=== PATIENT | female | born 1940 | race Caucasian/White ===

== ENCOUNTER → 2016-08-05 | Outpatient (CLI) | payer MEDICARE, BC ==
--- NOTE | 2016-08-09 09:06 | MM ---
Reason for exam: screening (asymptomatic). Last mammogram was performed 2 years and 5 months ago. History: Patient has history of breast cancer at age 73 and has history of other cancer at age 63. Family history of breast cancer in mother at age 72 and breast cancer in grandmother at age 70. Malignant US biopsy breast VAD RT of the right breast, March 06, 2014. Physical Findings: A clinical breast exam by your physician is recommended on an annual basis and results should be correlated with mammographic findings. MG 3D Screening Mammo W/Cad Bilateral CC and MLO view(s) were taken. Prior study comparison: March 06, 2014, right breast MG diagnostic mammo RT wo CAD. February 01, 2014, bilateral MG diagnostic mammo w CAD BK. There are scattered fibroglandular densities. Post surgical changes and clips in the right breast. Skin thickening in the right breast. No significant changes when compared with prior studies. ASSESSMENT: Benign, BI-RAD 2 RECOMMENDATION: Routine screening mammogram of both breasts in 1 year.
== END ==
LOC: RADMAMWWP 16:33
PROVIDERS: ATTEND Internal Medicine Geriatric Medicine
DX: Z12.31 Encounter for screening mammogram for malignant neoplasm of breast (principal); Z85.3 Personal history of malignant neoplasm of breast
CPT/HCPCS: 77063; G0202

== ENCOUNTER 2016-09-28 14:57 | Inpatient (IN) | payer MEDICARE, BC ==
--- NOTE | 2016-09-28 15:52 | ED ---
General Adult HPI - General Source: EMS, RN notes reviewed, old records reviewed Mode of arrival: EMS <Michael Tellez - Last Filed: 09/28/16 15:50> <Romeo Tobar - Last Filed: 09/29/16 00:16> - General Chief complaint: Recheck/Abnormal Lab/Rx Stated complaint: Swollen Legs Time Seen by Provider: 09/28/16 15:03 - History of Present Illness Initial comments: This is a 36-year-old female to the ER for evaluation this patient is here for evaluation of diffuse edema and swelling just and disability to ambulate. History of. Blood pressure high cholesterol diabetes. (Michael Tellez) - Related Data Allergies Allergy/AdvReac Type Severity Reaction Status Date / Time iodine Allergy Anaphylaxis Verified 09/28/16 15:48 Penicillins Allergy Anaphylaxis Verified 09/28/16 15:48 latex AdvReac Rash/Hives Verified 09/28/16 15:48 Review of Systems ROS Other: All systems not noted in ROS Statement are negative. <Michael Tellez - Last Filed: 09/28/16 15:50> ROS Other: All systems not noted in ROS Statement are negative. <Romeo Tobar - Last Filed: 09/29/16 00:16> ROS Statement: Those systems with pertinent positive or pertinent negative responses have been documented in the HPI. Past Medical History Past Medical History: Cancer, GERD/Reflux, Hyperlipidemia, Hypertension, Osteoarthritis (OA), Pneumonia Additional Past Medical History / Comment(s): breast cancer which was in the lymph nodes Past Surgical History: Appendectomy, Bladder Surgery, Hysterectomy, Joint Replacement Additional Past Surgical History / Comment(s): eye surgery as a child, cystocele , lap band surgery, 1/3 of stomach removed for precancerous ulcer Past Psychological History: No Psychological Hx Reported Smoking Status: Former smoker Past Alcohol Use History: None Reported Past Drug Use History: None Reported <Michael Tellez - Last Filed: 09/28/16 15:50> Medical Decision Making <Michael Tellez - Last Filed: 09/28/16 15:50> - Lab Data Result diagrams: 09/28/16 16:25 09/28/16 16:25 <Romeo Tobar - Last Filed: 09/29/16 00:16> - Medical Decision Making I receive this patient has a sign out pending the results of the lab studies, and with the understanding that the patient will be admitted based on her inability to ambulate with consideration of probable placement. I discussed case with Dr. Hart who will admit the patient to have further placement. (Romeo Tobar) - Lab Data Lab Results 09/28/16 09/28/16 09/28/16 Range/Units 16:01 16:25 16:25 WBC 8.5 (3.8-10.6) k/uL RBC 3.76 L (3.80-5.40) m/uL Hgb 11.6 (11.4-16.0) gm/dL Hct 36.6 (34.0-46.0) % MCV 97.3 (80.0-100.0) fL MCH 31.0 (25.0-35.0) pg MCHC 31.8 (31.0-37.0) g/dL RDW 13.7 (11.5-15.5) % Plt Count 321 (150-450) k/uL Neutrophils % 68 % Lymphocytes % 19 % Monocytes % 5 % Eosinophils % 6 % Basophils % 1 % Neutrophils # 5.8 (1.3-7.7) k/uL Lymphocytes # 1.6 (1.0-4.8) k/uL Monocytes # 0.5 (0-1.0) k/uL Eosinophils # 0.5 (0-0.7) k/uL Basophils # 0.1 (0-0.2) k/uL PT (9.0-12.0) sec INR (<1.1) APTT (22.0-30.0) sec Sodium (137-145) mmol/L Potassium (3.5-5.1) mmol/L Chloride (98-107) mmol/L Carbon Dioxide (22-30) mmol/L Anion Gap mmol/L BUN (7-17) mg/dL Creatinine (0.52-1.04) mg/dL Est GFR (MDRD) Af Amer (>60 ml/min/1.73 sqM) Est GFR (MDRD) Non-Af (>60 ml/min/1.73 sqM) Glucose (74-99) mg/dL Calcium (8.4-10.2) mg/dL Phosphorus (2.5-4.5) mg/dL Magnesium (1.6-2.3) mg/dL Total Bilirubin (0.2-1.3) mg/dL AST (14-36) U/L ALT (9-52) U/L Alkaline Phosphatase (38-126) U/L Total Creatine Kinase 29 L (30-135) U/L CK-MB (CK-2) <0.2 (0.0-2.4) ng/mL CK-MB (CK-2) Rel Index Troponin I <0.012 (0.000-0.034) ng/mL Total Protein (6.3-8.2) g/dL Albumin (3.5-5.0) g/dL Urine Color Yellow Urine Appearance Clear (Clear) Urine pH 5.5 (5.0-8.0) Ur Specific Midway 1.011 (1.001-1.035) Urine Protein Negative (Negative) Urine Glucose (UA) Negative (Negative) Urine Ketones Negative (Negative) Urine Blood Negative (Negative) Urine Nitrite Negative (Negative) Urine Bilirubin Negative (Negative) Urine Urobilinogen <2.0 (<2.0) mg/dL Ur Leukocyte Esterase Negative (Negative) 09/28/16 09/28/16 Range/Units 16:25 16:25 WBC (3.8-10.6) k/uL RBC (3.80-5.40) m/uL Hgb (11.4-16.0) gm/dL Hct (34.0-46.0) % MCV (80.0-100.0) fL MCH (25.0-35.0) pg MCHC (31.0-37.0) g/dL RDW (11.5-15.5) % Plt Count (150-450) k/uL Neutrophils % % Lymphocytes % % Monocytes % % Eosinophils % % Basophils % % Neutrophils # (1.3-7.7) k/uL Lymphocytes # (1.0-4.8) k/uL Monocytes # (0-1.0) k/uL Eosinophils # (0-0.7) k/uL Basophils # (0-0.2) k/uL PT 10.8 (9.0-12.0) sec INR 1.1 (<1.1) APTT 22.7 (22.0-30.0) sec Sodium 136 L (137-145) mmol/L Potassium 4.4 (3.5-5.1) mmol/L Chloride 101 (98-107) mmol/L Carbon Dioxide 27 (22-30) mmol/L Anion Gap 8 mmol/L BUN 18 H (7-17) mg/dL Creatinine 0.77 (0.52-1.04) mg/dL Est GFR (MDRD) Af Amer >60 (>60 ml/min/1.73 sqM) Est GFR (MDRD) Non-Af >60 (>60 ml/min/1.73 sqM) Glucose 96 (74-99) mg/dL Calcium 9.5 (8.4-10.2) mg/dL Phosphorus 3.4 (2.5-4.5) mg/dL Magnesium 1.7 (1.6-2.3) mg/dL Total Bilirubin 0.7 (0.2-1.3) mg/dL AST 21 (14-36) U/L ALT 14 (9-52) U/L Alkaline Phosphatase 80 (38-126) U/L Total Creatine Kinase (30-135) U/L CK-MB (CK-2) (0.0-2.4) ng/mL CK-MB (CK-2) Rel Index Troponin I (0.000-0.034) ng/mL Total Protein 6.9 (6.3-8.2) g/dL Albumin 3.8 (3.5-5.0) g/dL Urine Color Urine Appearance (Clear) Urine pH (5.0-8.0) Ur Specific Midway (1.001-1.035) Urine Protein (Negative) Urine Glucose (UA) (Negative) Urine Ketones (Negative) Urine Blood (Negative) Urine Nitrite (Negative) Urine Bilirubin (Negative) Urine Urobilinogen (<2.0) mg/dL Ur Leukocyte Esterase (Negative) Disposition <Michael Tellez - Last Filed: 09/28/16 15:50> <Romeo Tobar - Last Filed: 09/29/16 00:16> Clinical Impression: Inability to ambulate due to multiple joints Disposition: ADMITTED IP TO THIS [facility] Condition: Fair
[2016-09-28 16:12] LABS: Appearance,Urine Clear (Clear); Bilirubin,Urine Negative (Negative); Glucose,Urine (UA) Negative (Negative); Ketones,Urine Negative (Negative); Leukocyte Esterase,Urine Negative (Negative); Nitrite,Urine Negative (Negative); PH, Urine 5.5 (5.0-8.0); Protein,Urine Negative (Negative); Specific Gravity,Urine 1.011 (1.001-1.035); UA Billing (MACRO vs. MICRO) CHEM; Urobilinogen,Urine <2.0 mg/dL (<2.0)
[2016-09-28 16:37] LABS: Basophils # (A) 0.1 k/uL (0-0.2); Basophils % (A) 1 %; CH 30.9; CHCM 31.9; Eosinophils # (A) 0.5 k/uL (0-0.7); Eosinophils % (A) 6 %; HCT 36.6 % (34.0-46.0); HDW 2.23; HGB 11.6 gm/dL (11.4-16.0); Luc # (Auto) 0.12; Luc % (Auto) 2; Lymphocytes # (A) 1.6 k/uL (1.0-4.8); Lymphocytes % (A) 19 %; MCHC 31.8 g/dL (31.0-37.0); MCV 97.3 fL (80.0-100.0); Mean Platelet Volume 6.6; Monocytes # (A) 0.5 k/uL (0-1.0); Monocytes % (A) 5 %; Neutrophils # (A) 5.8 k/uL (1.3-7.7); Neutrophils % (A) 68 %; RBC 3.76 m/uL (3.80-5.40); RDW 13.7 % (11.5-15.5); WBC 8.5 k/uL (3.8-10.6); WBC (Perox) 9.06
[2016-09-28 16:46] LABS: ALT 14 U/L (9-52); AST 21 U/L (14-36); Alkaline Phosphatase 80 U/L (38-126); Anion Gap 8 mmol/L; Blood Urea Nitrogen 18 mg/dL (7-17); Calcium 9.5 mg/dL (8.4-10.2); Carbon Dioxide 27 mmol/L (22-30); Chloride 101 mmol/L (98-107); Glucose 96 mg/dL (74-99); Magnesium 1.7 mg/dL (1.6-2.3); Non-African American GFR(MDRD) >60 (>60 ml/min/1.73 sqM); Phosphorous 3.4 mg/dL (2.5-4.5); Potassium 4.4 mmol/L (3.5-5.1); Sodium 136 mmol/L (137-145); Total Bilirubin 0.7 mg/dL (0.2-1.3); Total Protein 6.9 g/dL (6.3-8.2)
[2016-09-28 16:49] LABS: INR 1.1 (<1.1); Partial Thromboplastin Time 22.7 sec (22.0-30.0); Prothrombin Time 10.8 sec (9.0-12.0)
[2016-09-28 16:55] LABS: Creatine Kinase 29 U/L (30-135)
[2016-09-28 17:08] LABS: Creatine Kinase MB <0.2 ng/mL (0.0-2.4); Troponin I <0.012 ng/mL (0.000-0.034)
[2016-09-28] MEDS ORDERED: ACETAMINOPHEN TAB 325 MG TAB PO STA (18:13)
--- NOTE | 2016-09-28 18:28 | US ---
EXAMINATION TYPE: US venous doppler duplex LE BI DATE OF EXAM: 09/28/2016 6:02 PM COMPARISON: NONE CLINICAL HISTORY: Pain. Bilateral leg swelling. Extremely difficult/limited exam due to patient body habitus and bilateral swelling SIDE PERFORMED: Bilateral TECHNIQUE: The lower extremity deep venous system is examined utilizing real time linear array sonog shazia with graded compression, doppler sonography and color-flow sonography. VESSELS IMAGED: External Iliac Vein (EIV) Common Femoral Vein Deep Femoral Vein Greater Saphenous Vein * Femoral Vein Popliteal Vein Small Saphenous Vein * Proximal Calf Veins (* superficial vessels) Right Leg: Negative for DVT as visualized Left Leg: Negative for DVT as visualized Unable to turn probe longitudinally for color pictures due to patient body habitus, however color and flow was achieved on transverse imaging. IMPRESSION: No evidence for DVT.
[2016-09-29] MEDS ORDERED: NALOXONE 0.4 MG/ML 1 ML VIAL IV PRN (00:13)
[2016-09-29] MEDS ORDERED: ONDANSETRON 4 MG/2 ML VIAL IVP PRN (00:13)
[2016-09-29] MEDS ORDERED: CLINDAMYCIN 300 MG in DEXTROSE 5% IN WATER 50 ML IVPB SCH ×2 (09:00)
[2016-09-29] MEDS: SYMBICORT 80-4.5 MCG INHALER INHALATION SCH ×2 (09:10→21:29)
[2016-09-29] MEDS: FLUoxetine HCL 20 MG CAP PO SCH (09:12)
[2016-09-29] MEDS: ATORVASTATIN 80 MG TAB PO SCH (09:12)
[2016-09-29] MEDS: ASPIRIN 81 MG CHEW PO SCH (09:12)
[2016-09-29] MEDS: HEPARIN SODIUM,PORCINE 5,000 UNIT/ML 1 ML VIAL SQ SCH ×2 (09:12→20:52)
[2016-09-29] MEDS: FUROSEMIDE 40 MG TAB PO SCH (09:13)
[2016-09-29] MEDS: LOSARTAN 50 MG TAB PO SCH (09:13)
[2016-09-29] MEDS: SPIRONOLACTONE 25 MG TAB PO SCH (09:13)
[2016-09-29] MEDS: ACETAMINOPHEN TAB 325 MG TAB PO PRN (09:15)
--- NOTE | 2016-09-29 11:23 | HP ---
DATE OF ADMISSION: DATE OF SERVICE: 09/28/2016 CHIEF COMPLAINT: A 76-year-old white female with generalized weakness and lymphedema and cellulitis of extremities, admitted from the emergency room when seen in the emergency room an H&P was performed on 09/28/2016. SUBJECTIVE: A 76-year-old white female with history of progressive lymphedema and redness and swelling and open wounds to the lower legs over the past 2 to 3 years with worsening over the last 3 to 6 months. She said she has gained 30 pounds in last year. She is unable to get out of bed or once in a while, she states she can ambulate to the bathroom but minimally can ambulate and she progressively due to cellulitis and wounds building up her legs and increase fluid, she is unable to get out of bed and she is worried about infection in her legs at which time she came to the hospital. She has IODINE, PENICILLIN, and LATEX allergies. REVIEW OF SYSTEMS: A 14-point review of systems negative except for as mentioned in the HPI. PAST MEDICAL HISTORY: She has a history of GERD, dyslipidemia, hypertension, osteoarthritis, breast cancer, seen by Dr. Ibeth Whitfield, which is in remission with lymphedema, history of pneumonia. She has had bladder surgery, hysterectomy, joint replacement, appendectomy, eye surgery as a child, cystocele, lap band surgery. SOCIAL HISTORY: Former smoker. No alcohol. No illicit drugs. She lives in a mobile home by herself. She has home care coming in. Sodium was 136, potassium 4.4, BUN 18, creatinine 0.77, white count 8.5, hemoglobin 11.6. UA is negative. GFR is greater than 60, liver enzymes are normal. CARDIOVASCULAR: S1, S2. Lungs show scattered wheezes. PSYCHIATRIC: Fair mood and affect. NEUROLOGIC: Alert and oriented x3. HEMATOLOGIC: Shows lymphedema-type changes in the lower extremities with large amounts of edema all the way up to the mid abdomen area. She has cellulitis and redness and warmth to the lower extremities from the toes up to the knees and bilateral legs. GI: Obesity, increased abdominal girth. MUSCULOSKELETAL: Range of motion is limited in her legs maybe 3/5 strength, 4 to 5/5 strength in her upper extremities. ASSESSMENT: 1. Acute cellulitis extremities. 2. Acute lymphedema. 3. Inability to ambulate, gait dysfunction. 4. Generalized debility. She will need placement at a rehab center. IV antibiotics will be started for leg cellulitis. Dr. Whitten will be consulted for the leg cellulitis as well as PT, OT.
[2016-09-29] MEDS: IBUPROFEN 400 MG TAB PO PRN (12:42)
[2016-09-29 13:16] LABS: Hemoglobin A1C 5.3 % (4.2-6.1)
[2016-09-29] MEDS: ceFAZolin 1,000 MG in DEXTROSE/WATER 1 50ML.BAG IVPB SCH ×2 (15:20→23:21)
[2016-09-29] MEDS: NYSTATIN 100,000 UNIT/GM POWD 15 GM TOPICAL SCH (20:52)
[2016-09-30] MEDS: SYMBICORT 80-4.5 MCG INHALER INHALATION SCH ×2 (07:36→20:48)
--- NOTE | 2016-09-30 08:10 | CONS ---
DATE OF CONSULTATION: 09/29/2016 Reason for consultation is lower extremity cellulitis and groin area cutaneous candidiasis. HISTORY OF PRESENT ILLNESS: The patient is a 76-year-old female who came to the ER at [facility] 09/28/2016 with significant swelling of her lower extremity. Patient said that she was supposed to be on Lasix as an outpatient, not sure when or why it was stopped with significant swelling of the lower extremity and some erythema of the right leg. The patient also noticed there is some fluid collection behind the both knee area with worsening swelling and redness. She was unable to walk around with significant debility. The patient also has significant excoriation of the bilateral groin area. With these symptoms, the patient presented to the ER. The patient had been evaluated by the ER physician. She had lower extremity Doppler that was negative for DVT. She has been admitted to the hospital with fluid overload and question of cellulitis in view of the erythema. Patient was started on clindamycin because of her PENICILLIN allergy. ID was consulted for further recommendation regarding antibiotic therapy. Patient denies any high-grade fever; however, did have some chill. Patient denies significant chest pain, has some shortness of breath. No abdominal pain. No nausea, vomiting or any diarrhea. REVIEW OF SYSTEMS: CONSTITUTIONAL: Positive for weakness and chills. No high-grade fever. EYES: No complaint. ENT: No complaint. RESPIRATORY: As per HPI. CARDIOVASCULAR: As per HPI. GENITOURINARY: No complaint. GASTROINTESTINAL: No complaint. MUSCULOSKELETAL: No complaint. INTEGUMENTARY: As per HPI. PSYCHOLOGIC: No complaint. ENDOCRINE: No complaint. NEUROLOGIC: No complaint. PAST MEDICAL HISTORY: Hypertension, hyperlipidemia, osteoarthritis, pneumonia, gastroesophageal reflux disease, breast cancer. PAST SURGICAL HISTORY: Appendectomy, bladder surgery, hysterectomy, lap band surgery. SOCIAL HISTORY: Remote history of smoking. No drinking or drug use. 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 FAMILY HISTORY: No pertinent findings were noticed. Allergic to PENICILLIN with a past history of anaphylaxis, LATEX and IODINE with a rash. Medications include the patient is currently on Tylenol, aspirin, Lipitor, Symbicort, clindamycin, Prozac, Lasix, Motrin, Cozaar, Narcan, Zofran, Aldactone. On examination, blood pressure is 130/45 with a pulse of 67, temperature 98.7, she is 97% on room air. General description is an elderly female, lying in bed in no distress. No tachypnea or accessory muscle for respiration use. HEENT examination shows no pallor or scleral icterus. Oral mucous membranes dry. NECK: Trachea central. No thyromegaly. LUNGS: Unlabored breathing. Clear to auscultation anteriorly. HEART: S1, S2, regular rate and rhythm. ABDOMEN: Soft. No tenderness. Bilateral edema of the feet with minimal tenderness to the left leg. No evidence of any skin breakdown or any drainage. Examination of the bilateral groin area with significant excoriation and cutaneous candidiasis. Examination of the sacral area: No skin breakdown was noticed or any open wounds. Neurologically, patient is awake, alert, oriented x3. Mood and affect normal. LABS: Hemoglobin is 11.6 with a white count of 8.5, BUN of 18, creatinine 0.77. electrolytes has been normal, UA has been negative. DIAGNOSTIC IMPRESSION AND PLAN: 1. Patient admitted to the hospital with significant swelling of the legs with excoriation of the bilateral groin area with some erythema to the left leg with redness. Possible cellulitis in a patient with diffuse swelling and redness likely streptococcal disease. Clinical suspicion remained to be low for a methicillin-resistant Staphylococcus aureus infection. 2. Bilateral groin area cutenous candidiasis. 3. PENICILLIN allergy but no history of anaphylaxis. PLAN: 1. Discontinue clindamycin to decrease risk for Clostridium difficile colitis. 2. Patient will be given cefazolin 1 gm q.8 using cephalosporin in Patient with a history of PENICILLIN with itching will be safe. 3. Mycostatin powder to the bilateral groin area. 4. Will follow with the clinical condition and a culture to further adjust medication if needed. Thank you for this consultation. Will follow this patient along with you. INÉS
[2016-09-30] MEDS: ACETAMINOPHEN TAB 325 MG TAB PO PRN (08:35)
[2016-09-30] MEDS: ASPIRIN 81 MG CHEW PO SCH (09:26)
[2016-09-30] MEDS: ATORVASTATIN 80 MG TAB PO SCH (09:26)
[2016-09-30] MEDS: ceFAZolin 1,000 MG in DEXTROSE/WATER 1 50ML.BAG IVPB SCH ×2 (09:26→17:08)
[2016-09-30] MEDS: FLUoxetine HCL 20 MG CAP PO SCH (09:27)
[2016-09-30] MEDS: HEPARIN SODIUM,PORCINE 5,000 UNIT/ML 1 ML VIAL SQ SCH ×2 (09:27→20:50)
[2016-09-30] MEDS: SPIRONOLACTONE 25 MG TAB PO SCH (09:27)
[2016-09-30] MEDS: LOSARTAN 50 MG TAB PO SCH (09:27)
[2016-09-30] MEDS: FUROSEMIDE 40 MG TAB PO SCH (09:27)
[2016-09-30] MEDS: NYSTATIN 100,000 UNIT/GM POWD 15 GM TOPICAL SCH ×2 (09:29→21:08)
[2016-10-01] MEDS: ceFAZolin 1,000 MG in DEXTROSE/WATER 1 50ML.BAG IVPB SCH ×2 (00:31→09:53)
[2016-10-01] MEDS: SYMBICORT 80-4.5 MCG INHALER INHALATION SCH ×2 (08:07→19:43)
--- NOTE | 2016-10-01 09:17 | PN ---
DATE OF SERVICE: 09/30/2016 REASON FOR FOLLOWUP: Lower extremity cellulitis and groin area cutaneous candidiasis. INTERVAL HISTORY: The patient is afebrile. She is breathing comfortably. Swelling to leg slightly decreased. No significant redness. Denies having any chest pain or shortness cough. No cough or diarrhea. On examination, blood pressure 110/63, pulse 66, temperature 98.2. She is 97% on 2 L nasal cannula. GENERAL DESCRIPTION: An elderly female, lying in bed in no distress. RESPIRATORY SYSTEM: Unlabored breathing. Clear to auscultation anteriorly. HEART: S1, S2 regular rate and rhythm. EXTREMITIES: Legs, swelling persists but redness has resolved. LABS: No new lab have been obtained today. Urine culture is negative. DIAGNOSTIC IMPRESSION AND PLAN: 1. Patient has significant swelling of the legs with a component of possible cellulitis. She has responded to cefazolin and has had no further problems. Finish short course of oral Keflex. 2. Patient with bilateral groin area cutaneous candidiasis, nystatin powder for about a week to 10 days. MTDD
[2016-10-01] MEDS: ASPIRIN 81 MG CHEW PO SCH (09:54)
[2016-10-01] MEDS: ATORVASTATIN 80 MG TAB PO SCH (09:54)
[2016-10-01] MEDS: FLUoxetine HCL 20 MG CAP PO SCH (09:54)
[2016-10-01] MEDS: NYSTATIN 100,000 UNIT/GM POWD 15 GM TOPICAL SCH ×2 (09:55→22:17)
[2016-10-01] MEDS: HEPARIN SODIUM,PORCINE 5,000 UNIT/ML 1 ML VIAL SQ SCH ×2 (09:55→22:16)
[2016-10-01] MEDS: FUROSEMIDE 40 MG TAB PO SCH (09:55)
[2016-10-01] MEDS: LOSARTAN 50 MG TAB PO SCH (09:55)
[2016-10-01] MEDS: SPIRONOLACTONE 25 MG TAB PO SCH (09:56)
--- NOTE | 2016-10-01 10:58 | PN ---
SUBJECTIVE: 76-year-old white female admitted with lymphedema, cellulitis of extremities. Remains on IV Cefazolin. Leg elevation. The patient is improving with IV Lasix. She is now on subcu heparin. CARDIOVASCULAR: S1, S2. LUNGS: Clear. GI: Soft. HEMATOLOGIC: Negative Homans. Lymphedema ( ) lower extremities. Dr. Stevens ordered Kefzol through the IV. ( ) maceration. Microstat powder to the groin. Possible discharge home tomorrow. PT, OT.
[2016-10-01] MEDS: ACETAMINOPHEN TAB 325 MG TAB PO PRN (11:12)
[2016-10-01] MEDS: CEPHALEXIN 500 MG CAP PO SCH ×2 (16:48→22:16)
--- NOTE | 2016-10-01 17:10 | PN ---
DATE OF SERVICE: 10/01/2016 Reason for follow up is bilateral lower extremity cellulitis and inguinal area cutaneous Candidiasis. INTERVAL HISTORY: The patient is afebrile. He is breathing comfortably. The leg swelling has improved. Redness has resolved. Denies any chest, no cough, no abdominal pain and no diarrhea. On examination, blood pressure 115/64, pulse of 98, temperature 97.5. She is 98% on 2 liters nasal cannula. General description is an elderly female up in the chair in no distress. RESPIRATORY SYSTEM: Unlabored breathing. Clear to auscultation anteriorly. HEART: S1, S2. Regular rate and rhythm. ABDOMEN: Soft. No tenderness. Leg swelling has decreased. No redness. LABS: [id number], white count 8.5. Urine has been negative. DIAGNOSTIC IMPRESSION AND PLAN: 1. Patient with bilateral lower extremity significant swelling and minimal redness, concern for possible cellulitis, has shown improvement. Plan to switch her over to p.o. Keflex for another 4 to 5 days. 2. Groin area cutaneous Candidiasis. Just continue Nystatin powder.
[2016-10-01] MEDS: IBUPROFEN 400 MG TAB PO PRN (17:42)
[2016-10-02] MEDS: SYMBICORT 80-4.5 MCG INHALER INHALATION SCH ×2 (07:42→19:27)
[2016-10-02] MEDS: ACETAMINOPHEN TAB 325 MG TAB PO PRN ×2 (09:05→21:29)
[2016-10-02] MEDS: ATORVASTATIN 80 MG TAB PO SCH (09:06)
[2016-10-02] MEDS: HEPARIN SODIUM,PORCINE 5,000 UNIT/ML 1 ML VIAL SQ SCH ×2 (09:06→21:30)
[2016-10-02] MEDS: CEPHALEXIN 500 MG CAP PO SCH ×3 (09:06→21:30)
[2016-10-02] MEDS: FUROSEMIDE 40 MG TAB PO SCH (09:06)
[2016-10-02] MEDS: SPIRONOLACTONE 25 MG TAB PO SCH (09:06)
[2016-10-02] MEDS: LOSARTAN 50 MG TAB PO SCH (09:06)
[2016-10-02] MEDS: ASPIRIN 81 MG CHEW PO SCH (09:06)
[2016-10-02] MEDS: FLUoxetine HCL 20 MG CAP PO SCH (09:06)
[2016-10-02] MEDS: NYSTATIN 100,000 UNIT/GM POWD 15 GM TOPICAL SCH ×2 (09:07→21:30)
--- NOTE | 2016-10-02 09:56 | PN ---
DATE OF SERVICE: 10/01/2016 SUBJECTIVE: 76-year-old white female with inability to ambulate, lymphedema and protein calorie malnutrition, generalized weakness and lethargy. The patient is slowly improving with IV Lasix. Ambulation is poor. She is unable to get out of bed. Discharge planning has been consulted. CARDIOVASCULAR: S1 and S2. LUNGS: Transmitted upper airway sounds. HEMATOLOGIC: Negative Homans. PSYCHIATRIC: Fair mood and affect. PLAN: Continue current treatment with IV Lasix. PT, OT. Possible discharge home in the next 24 to 48 hours.
--- NOTE | 2016-10-02 17:30 | PN ---
SUBJECTIVE: A 76-year-old white female with decreased redness and swelling, responding with IV Lasix. She is agreeable to go to a group home for a couple weeks over at [facility]. Heart rate S1, S2. ABDOMEN: Soft. Legs with decreased redness. Hemoglobin is 11.6, white count 8.5. Urine is negative. ASSESSMENT: 1. Bilateral cellulitis of the legs. 2. Lymphedema, all improving. 3. Candidiasis. 4. Generalized debility. 5. Inability to ambulate. half-way placement on Tuesday. Continue with PT, OT, IV Lasix.
[2016-10-03] MEDS: IBUPROFEN 400 MG TAB PO PRN (00:06)
[2016-10-03] MEDS: SYMBICORT 80-4.5 MCG INHALER INHALATION SCH ×2 (07:53→20:21)
[2016-10-03] MEDS: ACETAMINOPHEN TAB 325 MG TAB PO PRN ×2 (09:03→16:59)
[2016-10-03] MEDS: DOCUSATE 100 MG CAP PO SCH (09:03)
[2016-10-03] MEDS: ATORVASTATIN 80 MG TAB PO SCH (09:04)
[2016-10-03] MEDS: FUROSEMIDE 40 MG TAB PO SCH (09:04)
[2016-10-03] MEDS: CEPHALEXIN 500 MG CAP PO SCH ×3 (09:04→22:16)
[2016-10-03] MEDS: LOSARTAN 50 MG TAB PO SCH (09:04)
[2016-10-03] MEDS: FLUoxetine HCL 20 MG CAP PO SCH (09:04)
[2016-10-03] MEDS: ASPIRIN 81 MG CHEW PO SCH (09:04)
[2016-10-03] MEDS: SPIRONOLACTONE 25 MG TAB PO SCH (09:04)
[2016-10-03] MEDS: HEPARIN SODIUM,PORCINE 5,000 UNIT/ML 1 ML VIAL SQ SCH ×2 (09:04→22:15)
[2016-10-03] MEDS: NYSTATIN 100,000 UNIT/GM POWD 15 GM TOPICAL SCH ×2 (09:06→22:16)
[2016-10-03] MEDS: SUCRALFATE 1 GM TAB PO SCH ×2 (12:13→16:57)
[2016-10-03] MEDS: MELATONIN 5 MG TABLET PO SCH (22:15)
[2016-10-04] MEDS: ACETAMINOPHEN TAB 325 MG TAB PO PRN (02:43)
--- NOTE | 2016-10-04 07:14 | PN ---
SUBJECTIVE: This 76-year-old white female with lymphedema-type changes, cellulitis of the lower extremities, remains on IV Kefzol. She is having no chest pain or shortness of breath. No lightheadedness, dizziness or syncope. Her leg swelling is decreasing. Her ambulation is poor. She is unable to get out of bed by herself. She is being evaluated for long-term, family requested her to go back to [facility] for one week. LUNGS: Clear. GI: Soft. HEMATOLOGIC: Negative Homans. Continue with current treatments.
[2016-10-04] MEDS: SYMBICORT 80-4.5 MCG INHALER INHALATION SCH ×2 (07:58→20:27)
[2016-10-04] MEDS: ATORVASTATIN 80 MG TAB PO SCH (08:53)
[2016-10-04] MEDS: CEPHALEXIN 500 MG CAP PO SCH ×3 (08:53→22:00)
[2016-10-04] MEDS: SUCRALFATE 1 GM TAB PO SCH ×3 (08:53→16:44)
[2016-10-04] MEDS: ASPIRIN 81 MG CHEW PO SCH (08:53)
[2016-10-04] MEDS: HEPARIN SODIUM,PORCINE 5,000 UNIT/ML 1 ML VIAL SQ SCH ×2 (08:54→20:07)
[2016-10-04] MEDS: LOSARTAN 50 MG TAB PO SCH (08:54)
[2016-10-04] MEDS: DOCUSATE 100 MG CAP PO SCH (08:54)
[2016-10-04] MEDS: FLUoxetine HCL 20 MG CAP PO SCH (08:54)
[2016-10-04] MEDS: FUROSEMIDE 40 MG TAB PO SCH (08:54)
[2016-10-04] MEDS: NYSTATIN 100,000 UNIT/GM POWD 15 GM TOPICAL SCH ×2 (08:55→20:07)
[2016-10-04] MEDS: SPIRONOLACTONE 25 MG TAB PO SCH (08:55)
[2016-10-04] MEDS: IBUPROFEN 400 MG TAB PO PRN (08:59)
--- NOTE | 2016-10-04 11:48 | PN ---
DATE OF SERVICE: 10/04/2016 Reason for followup is: 1. Bilateral lower extremity cellulitis, improved. 2. Groin cutaneous candidiasis. INTERVAL HISTORY: The patient is afebrile. She is currently breathing comfortably. Denies significant chest pain, no cough. No pain in the groin area. The leg swelling has improved with no redness. On examination, blood pressure 140/53 with a pulse of 70, temperature 97.9, she is 94% on room air. General description is an elderly female, lying in bed in no distress. RESPIRATORY SYSTEM: Unlabored breathing. Clear to auscultation anteriorly. HEART: S1, S2. Regular rate and rhythm. ABDOMEN: Soft, no tenderness. Leg swelling has much improved. No redness. LABS: No new labs have been obtained today. Urine is negative. DIAGNOSTIC IMPRESSION AND PLAN: 1. Patient with bilateral extremity swelling with question of minimal cellulitis, adequately treated per oral Keflex. She will continue for another 4 to 5 days. 2. Groin area cutaneous skin disease, the patient will continue with nystatin powder for about a week. Continue supportive care.
--- NOTE | 2016-10-04 13:36 | XR ---
EXAMINATION TYPE: XR chest 1V DATE OF EXAM: 10/04/2016 1:18 PM HISTORY: ECF . REFERENCE: NONE. FINDINGS: There is scarring or atelectasis in the right midlung. Lungs otherwise clear. Pleural space s are clear. Heart size is upper limits of normal. IMPRESSION: SCARRING VERSUS ATELECTASIS, RIGHT MIDLUNG.
--- NOTE | 2016-10-04 16:06 | CDI ---
In responding to this query, please exercise your independent professional judgment. The [facility] Coding Staff and Clinical Documentation Specialists appreciate your assistance in clarifying documentation, maintaining compliance with coding guidelines, accurately documenting patients condition and capturing severity of illness. The fact that a question is asked does not imply that any particular answer is desired or expected. Communication forms are a method of clarifying documentation and are not made part of the Legal Health Record. Thank you in advance for your clarification. Last Revision, April 2015 Joaquin Hammond [address] [facility] [place] [address] Documentation Clarification Form Date: 10/04/2016 3:54:00 PM From: Lisa Guthrie RN, CDS Admit Date: 10/03/2016 10:27:00 AM Patient Name: Gill Moreno Visit Number: [id number] Dr. Jim Hart, History/Risk Factors: Lymphedema, in past, HTN, GERD, Osteoarthritis Clinical Indicators: Patients weight is 125.5 KG Patients height is 5ft 1in Calculated BMI is 52.3 Treatments: Heart Healthy diet In order to capture the severity of condition associated with patient BMI of 52.3, a clinical diagnoses needs to be documented by the physician. Please clarify: Morbid Obesity Obesity Other Unable to determine Please document in your progress notes and discharge summary in order to capture severity of illness and risk of mortality. Include clinical findings that support your diagnosis. FYI: Press F11 to launch patient chart. Place X here if this finding has no clinical significance, is not applicable or if you are not able to provide any additional documentation. INÉS
[2016-10-04] MEDS: MELATONIN 5 MG TABLET PO SCH (20:07)
[2016-10-05] MEDS: ACETAMINOPHEN TAB 325 MG TAB PO PRN ×3 (05:08→23:28)
[2016-10-05] MEDS: SUCRALFATE 1 GM TAB PO SCH ×3 (08:09→17:03)
[2016-10-05] MEDS: ASPIRIN 81 MG CHEW PO SCH (08:10)
[2016-10-05] MEDS: ATORVASTATIN 80 MG TAB PO SCH (08:10)
[2016-10-05] MEDS: CEPHALEXIN 500 MG CAP PO SCH ×3 (08:10→21:57)
[2016-10-05] MEDS: FLUoxetine HCL 20 MG CAP PO SCH (08:11)
[2016-10-05] MEDS: DOCUSATE 100 MG CAP PO SCH (08:11)
[2016-10-05] MEDS: HEPARIN SODIUM,PORCINE 5,000 UNIT/ML 1 ML VIAL SQ SCH ×2 (08:11→21:57)
[2016-10-05] MEDS: FUROSEMIDE 40 MG TAB PO SCH (08:11)
[2016-10-05] MEDS: SPIRONOLACTONE 25 MG TAB PO SCH (08:12)
[2016-10-05] MEDS: LOSARTAN 50 MG TAB PO SCH (08:12)
[2016-10-05] MEDS: NYSTATIN 100,000 UNIT/GM POWD 15 GM TOPICAL SCH ×2 (08:12→21:57)
--- NOTE | 2016-10-05 08:27 | PN ---
SUBJECTIVE: This is a 76-year-old white female with inability to ambulate with lymphedema-type changes of the legs. Having no chest pain or shortness of breath. PHYSICAL EXAM: VITAL SIGNS: Stable, afebrile. CARDIOVASCULAR: S1 and S2. LUNGS: Clear. GI: Soft. HEMATOLOGIC: Shows 2 to 3+ pedal edema bilaterally. Lymphedema-type changes. Normal bowel sounds. ASSESSMENT: 1. Inability to ambulate. 2. Lymphedema-type changes. 3. Gait immobility. GI: Soft. HEMATOLOGIC: Negative Cathie's. Continue with current treatment with IV Lasix. Leg elevation. Physical therapy and occupational therapy. Sent to [facility] [place] for a week or two weeks.
[2016-10-05] MEDS: SYMBICORT 80-4.5 MCG INHALER INHALATION SCH ×2 (09:07→20:46)
[2016-10-05] MEDS: IBUPROFEN 400 MG TAB PO PRN (19:49)
[2016-10-05] MEDS: MELATONIN 5 MG TABLET PO SCH (21:57)
--- NOTE | 2016-10-05 22:25 | PN ---
DATE OF SERVICE: 10/05/2016 REASON FOR FOLLOWUP: Lower extremity cellulitis and groin area cutaneous candidiasis. INTERVAL HISTORY: The patient is afebrile. She has been breathing comfortably. The leg swelling has much improved. Denies significant chest pain. Occasional cough. No abdominal pain. On examination, blood pressure is 100/52 with a pulse of 83, temperature 98.2. She is 94% on room air. General description is an elderly female lying in bed in no distress. RESPIRATORY SYSTEM: Unlabored breathing. Clear to auscultation anteriorly. HEART: S1, S2. Regular rate and rhythm. ABDOMEN: Soft. No tenderness. Lower extremity swelling has decreased and the redness has resolved. DIAGNOSTIC IMPRESSION AND PLAN: 1. Patient with bilateral lower extremity swelling with a component of cellulitis, currently responding to Keflex. That will continue for about 5 to 7 days. 2. Bilateral groin area cutaneous candidiasis, for which the patient will continue on the Nystatin powder twice a day. Continue supportive care. MTDD
[2016-10-06] MEDS: SYMBICORT 80-4.5 MCG INHALER INHALATION SCH (08:09)
[2016-10-06] MEDS: SPIRONOLACTONE 25 MG TAB PO SCH (10:15)
[2016-10-06] MEDS: ASPIRIN 81 MG CHEW PO SCH (10:15)
[2016-10-06] MEDS: ATORVASTATIN 80 MG TAB PO SCH (10:15)
[2016-10-06] MEDS: SUCRALFATE 1 GM TAB PO SCH ×3 (10:16→16:25)
[2016-10-06] MEDS: CEPHALEXIN 500 MG CAP PO SCH ×2 (10:16→16:25)
[2016-10-06] MEDS: FUROSEMIDE 40 MG TAB PO SCH (10:16)
[2016-10-06] MEDS: HEPARIN SODIUM,PORCINE 5,000 UNIT/ML 1 ML VIAL SQ SCH (10:16)
[2016-10-06] MEDS: LOSARTAN 50 MG TAB PO SCH (10:16)
[2016-10-06] MEDS: NYSTATIN 100,000 UNIT/GM POWD 15 GM TOPICAL SCH (10:16)
[2016-10-06] MEDS: FLUoxetine HCL 20 MG CAP PO SCH (10:16)
[2016-10-06] MEDS: DOCUSATE 100 MG CAP PO SCH ×2 (10:16→10:19)
--- NOTE | 2016-10-06 10:30 | PN ---
SUBJECTIVE: A 76-year-old white female with lymphedema-type changes, cellulitis and swelling of the lower extremities. The patient is greatly improved. PT, OT has got her up into a chair. Her breathing is improved. Her depression is stable. VITAL SIGNS: Stable, afebrile. CARDIOVASCULAR: S1, S2. LUNGS: Transmitted upper airway sounds. HEMATOLOGIC: Negative Homans. PLAN: Continue current treatments, PT, OT at [facility], discharge for tomorrow morning.
--- NOTE | 2016-10-06 14:55 | P.DS ---
Providers Date of admission: 10/03/16 10:27 Expected date of discharge: 10/06/16 Attending physician: Jim Nunes Primary care physician: [facility] Course: 76 year old presented via the EMS system to be evaluated for increased swelling bilateral lower extremities inability to ambulate. With possible rehab placement. Patient was seen by physical therapy, occupational therapy was felt to be appropriate candidate for physical therapy at a subacute rehab patient additionally was seen by Dr. Stevens infectious disease. Patient was treated for bilateral lower extremity cellulitis with Keflex and there was a significant noted improvement there was decreased swelling. Decreased redness. Additionally nystatin powder was applied to the bilateral groin areas for treatment of candidiasis placed to the bilateral lower extremities were negative for evidence of a DVT subsequent the patient was felt to be a candidate to be transferred to [facility] subacute rehab impression discharge diagnosis Present on admission bilateral lower extremity cellulitis Present on admission bilateral groin Candidasis Morbid obesity BMI 51 Physical debility suspect due to deconditioning Osteoarthritis Hypertension Dyslipidemia Present on admission bilateral lower extremity lymphedema The above dictated assessment and findings were discussed with dr nunes Impression and the plan of care have been dictated as directed. Kimberli Ruiz nurse practitioner acting as a scribe for dr nunes Patient Condition at Discharge: Fair Plan - Discharge Summary New Discharge Prescriptions: Cephalexin [Keflex] 500 mg PO TID #21 cap Nystatin 100,000 Unit/gm Powd [Mycostatin Powder] 1 applic TOPICAL BID #1 applic Discharge Medication List Acetaminophen [Tylenol] 1,000 mg PO QID PRN 09/28/16 [History] Aspirin [Adult Low Dose Aspirin EC] 81 mg PO DAILY 09/28/16 [History] Atorvastatin [Lipitor] 80 mg PO DAILY 09/28/16 [History] Budesonide/Formoterol Fumarate [Symbicort 80-4.5 Mcg Inhaler] 1 puff INHALATION RT-BID 09/28/16 [History] Celecoxib [CeleBREX] 200 mg PO DAILY 09/28/16 [History] FLUoxetine HCL [PROzac] 40 mg PO DAILY 09/28/16 [History] Furosemide [Lasix] 40 mg PO DAILY 09/28/16 [History] Irbesartan [Avapro] 150 mg PO DAILY 09/28/16 [History] Spironolactone [Aldactone] 50 mg PO DAILY 09/28/16 [History] Lansoprazole [Prevacid] 30 mg PO DAILY 09/29/16 [History] Sucralfate [Carafate] 1 gm PO ACHS 09/29/16 [History] Cephalexin [Keflex] 500 mg PO TID #21 cap 10/06/16 [Rx] Heparin Sodium,Porcine [Heparin Sodium] 5,000 unit SQ Q12HR vial 10/06/16 [Rx] Nystatin 100,000 Unit/gm Powd [Mycostatin Powder] 1 applic TOPICAL BID #1 applic 10/06/16 [Rx] Follow up Appointment(s)/Referral(s): Raffi Hughes DO [Primary Care Provider] - 1 Week Patient Instructions/Handouts: Cellulitis (DC), Griffiths Catheter Placement and Care (DC), Fall Prevention (DC) Activity/Diet/Wound Care/Special Instructions: Bridgett on discharge Cardiac diet. Discharge Disposition: TRANSFER TO SNF/ECF
--- NOTE | 2016-10-06 15:25 | PN ---
DATE OF SERVICE: 10/06/2016 Reason for followup is lower extremity cellulitis and groin area cutaneous candidiasis. INTERVAL HISTORY: The patient is afebrile. He is currently breathing comfortably. Patient denies significant chest pain, no cough, no nausea or vomiting, no diarrhea. Swelling and redness to the leg has improved and denies any pain in the groin area. On examination, blood pressure is 129/68 with a pulse of 66, temperature 96.5. She is 94% on room air. General description is an elderly female, lying in bed in no distress. RESPIRATORY SYSTEM: Unlabored breathing. Clear to auscultation anteriorly. HEART: S1, S2, regular rate and rhythm. ABDOMEN: Soft, no tenderness. Leg swelling and redness is much improved. LABS: No new lab has been obtained today. DIAGNOSTIC IMPRESSION AND PLAN: 1. Patient with bilateral lower extremity swelling with component of cellulitis, overall improvement. The patient to continue p.o. Keflex for another 5 to 7 days. 2. Groin area cutaneous candidiasis, continue nystatin powder twice a day for about a week.
[2016-10-06 16:19] VITALS: BP 84/54; PULSE 82; RESP 16; TEMP 98.8
[2016-10-06] MEDS: ACETAMINOPHEN TAB 325 MG TAB PO PRN (16:25)
== END 2016-10-06 17:21 | DRG 603 ==
LOC: EC 14:57 → 4MS4W 09-29 00:16 → OBSVTOIN 10-03 10:27
PROVIDERS: ADMIT Family Medicine; ATTEND Family Medicine
DX: L03.115 Cellulitis of right lower limb (principal); E46 Unspecified protein-calorie malnutrition; E87.70 Fluid overload, unspecified; Z68.43 Body mass index [BMI] 50.0-59.9, adult; E66.01 Morbid (severe) obesity due to excess calories; L03.116 Cellulitis of left lower limb; B37.2 Candidiasis of skin and nail; E11.9 Type 2 diabetes mellitus without complications; I10 Essential (primary) hypertension; I89.0 Lymphedema, not elsewhere classified; K21.9 Gastro-esophageal reflux disease without esophagitis; E78.5 Hyperlipidemia, unspecified; E78.00 Pure hypercholesterolemia, unspecified; F32.9 Major depressive disorder, single episode, unspecified; R26.2 Difficulty in walking, not elsewhere classified; M19.91 Primary osteoarthritis, unspecified site; Z91.040 Latex allergy status; Z88.0 Allergy status to penicillin; Z87.891 Personal history of nicotine dependence; Z87.01 Personal history of pneumonia (recurrent); Z85.3 Personal history of malignant neoplasm of breast; Z79.82 Long term (current) use of aspirin; Z79.51 Long term (current) use of inhaled steroids; Z79.899 Other long term (current) drug therapy
CPT/HCPCS: 36415; 71010; 80053; 80061; 81003; 82550; 82553; 83036; 83735; 83880; 84100; 84443; 84484; 85025; 85610; 85730; 87086; 93005; 93970; 94640; 94760; 96366; 96367; 96372; 99285

== ENCOUNTER → 2016-10-29 | Outpatient (CLI) | payer MEDICARE, BC ==
--- NOTE | 2016-10-29 13:18 | XR ---
EXAMINATION TYPE: XR knee complete LT DATE OF EXAM: 10/29/2016 1:15 PM COMPARISON: NONE HISTORY: Pain TECHNIQUE: Four views are submitted. FINDINGS: Diffuse osteopenia with complete loss of joint space along the medial compartment. Severe narrowing p atellofemoral joint. Osseous structures are intact. No acute fracture seen. IMPRESSION: 1. No acute fracture or dislocation. 2. Severe osteoarthritis
--- NOTE | 2016-10-29 13:19 | XR ---
EXAMINATION TYPE: XR Hip Complete LT DATE OF EXAM: 10/29/2016 1:15 PM COMPARISON: NONE HISTORY: Pain TECHNIQUE: 2 views submitted FINDINGS: There is no evidence of erosive change or acute fracture. There is moderate axial narrowing the joint space and hypertrophic change of the acetabulum. Soft tis tereza calcifications are noted. Diffuse osteopenia noted. Contrast within bowel seen. IMPRESSION: 1. No evidence of acute fracture or dislocation. 2. Arthropathy of the hip correlate for femoral acetabular impingement.
--- NOTE | 2016-10-29 15:26 | CT ---
EXAMINATION TYPE: CT abdomen pelvis w con DATE OF EXAM: 10/29/2016 COMPARISON: 03/16/2014 HISTORY: Pain, inguinal hernia Automated exposure control for dose reduction was used. CONTRAST: 100 cc Omnipaque 300 FINDINGS- LUNG BASES- No significant abnormality is appreciated. Subsegmental linear changes are most typical of atelectasis. Skin thickening involving the right breast likely related to previous history of cami st cancer. Atherosclerotic change aorta and coronary artery calcification noted. LIVER/GB-multiple subcentimeter hypodensities within the liver are too small to characterize. PANCREAS- No gross abnormality is seen. SPLEEN- No gross abnormality is seen. ADRENALS- No gross abnormality is seen. KIDNEYS/BLADDER- no hydronephrosis or nephrolithiasis. Subcentimeter upper pole right renal lesion st able from the previous exam and nonspecific but likely related to proteinaceous or hemorrhagic cyst. BOWEL-previous lap band surgery noted. Changes of diverticulosis seen. Small periumbilical anterior abdominal wall hernia with no evidence of obstruction. LYMPH NODES- No greater than 1cm abdominal or pelvic lymph nodes areappreciated. OSSEOUS STRUCTURES-multilevel severe degenerative change of the vertebral column. Postsurgical change right hip. OTHER- atherosclerotic change aorta. Remaining vasculature demonstrates is changes of atherosclerosi s. Small fat-containing inguinal hernias bilaterally. Nonspecific subcutaneous soft tissue attenuatio n may been the basis of edema. Subcutaneous soft tissue nodules are nonspecific but new from the prev ious exam. Measures 9 mm. Fat density adjacent to the right iliopsoas muscle is suggestive of a lipom a. A Griffiths catheter in the bladder noted. Skin thickening along the anterior abdominal wall with epid ermal thickening and a small amount of subcutaneous emphysema. This may be echogenic. There is a soft tissue ossification. IMPRESSION- 1. Small fat-containing inguinal and periumbilical hernia with no evidence of obstruction. 2. There are multiple subcentimeter subcutaneous nodules within the anterior abdominal wall which is new from previous PET/CT of 2013. Although this may represent a sebaceous cyst. Correlate with ultras ound to exclude soft tissue mass given history of breast cancer. 3. Apparent postsurgical changes with skin thickening involving the right breast #4 subcentimeter hep atic lesions are too small to characterize but stable from the PET/CT of 2013 #4 cutaneous thickening along the anterior abdominal wall with a small amount of subcutaneous air. Likely related to injecti on or iatrogenic. Correlate clinically for confirmation to exclude infectious etiology.
== END | disposition home or self-care (01) ==
LOC: RADCTMAIN 12:37
PROVIDERS: ATTEND Family Medicine
DX: K40.90 Unilateral inguinal hernia, without obstruction or gangrene, not specified as recurrent (principal); K42.9 Umbilical hernia without obstruction or gangrene; R19.09 Other intra-abdominal and pelvic swelling, mass and lump; K76.9 Liver disease, unspecified; M25.852 Other specified joint disorders, left hip; M17.12 Unilateral primary osteoarthritis, left knee
CPT/HCPCS: 73502; 73562; 74177; Q9967

== ENCOUNTER → 2017-12-30 | Outpatient (CLI) | payer MEDICARE, BC ==
--- NOTE | 2018-01-05 09:02 | MM ---
Reason for exam: additional evaluation requested from prior study. Last mammogram was performed 1 year and 5 months ago. History: Patient has history of breast cancer at age 73 and has history of other cancer at age 63. Family history of breast cancer in mother at age 72 and breast cancer in maternal grandmother at age 70. Malignant US biopsy breast VAD RT of the right breast, March 06, 2014. Physical Findings: Nurse Summary: 2 cm nodule in the left breast at the 3 o'clock (nurse cw). MG 3D Diag Mammo W/Cad BK Bilateral CC and MLO view(s) were taken. Technologist: Regine Martin, RT (R)(M) Prior study comparison: August 05, 2016, bilateral MG 3d screening mammo w/cad. March 06, 2014, right breast MG diagnostic mammo RT wo CAD. February 01, 2014, bilateral MG diagnostic mammo w CAD BK. There are scattered fibroglandular densities. Post therapy changes on the right breast. Left upper outer quadrant focal asymmetry at middle posterior depth with associated distortion. These results were verbally communicated with the patient and result sheet given to the patient on 12/30/17. ASSESSMENT: Incomplete: need additional imaging evaluation, BI-RAD 0 RECOMMENDATION: Ultrasound of both breasts. Right breast retroareola for nipple discharge. Left breast upper outter quadrant.
--- NOTE | 2018-01-05 09:07 | USB ---
Reason for exam: additional evaluation requested from abnormal screening. History: Patient has history of breast cancer at age 73 and has history of other cancer at age 63. Family history of breast cancer in mother at age 72 and breast cancer in maternal grandmother at age 70. Malignant US biopsy breast VAD RT of the right breast, March 06, 2014. US Breast Limited BILAT Right limited breast ultrasound including focal area of concern, retroareolar and axilla demonstrates a 0.2cm hyperechoic lesion at the posterior nipple, biopsy is recommended in this patient with clear nipple discharge Left limited breast ultrasound including focal area of concern, retroareolar and axilla demonstrates no cystic or solid lesion seen. These results were verbally communicated with the patient and result sheet given to the patient on 12/30/17. ASSESSMENT: Suspicious, BI-RAD 4 RECOMMENDATION: Ultrasound core biopsy of the right breast. Stereotactic core biopsy of the left breast. (or localization and excision) Called Dr. Lemus with mammographic findings and has scheduled an appointment for the patient for 01/19/18 at 2:[address] Whitfield. PRELIMINARY REPORT CALLED AND FAXED TO DR. WHITFIELD ON 01/05/18.
== END | disposition home or self-care (01) ==
LOC: RADMAMWWP 14:23
PROVIDERS: ATTEND Family Medicine
DX: R92.8 Other abnormal and inconclusive findings on diagnostic imaging of breast (principal)
CPT/HCPCS: 77066; 76642; G0279; 77062